=== PATIENT | male | born 1985 | race Two or more races ===

== ENCOUNTER 2025-08-05 06:31 | Inpatient (IN) | payer OTHER ==
[~2025-08-05] VITALS: Ht 167.6 cm; Wt 83.9 kg
--- NOTE | 2025-08-05 06:35 | NUR ---
SE RECIBE PTE ALERTA Y ORIENTADO X3 EN AMBULANCIAS VITALINE CON QUEJA PRINCIPAL DE TRE TENIDO MUCHO DOLOR EN FLANCO DERECHO EL EDWIN DE ADÁN A LAS 11:00 AM. AL MOMENTO DE TRIAGE NO REFIERE DOLOR, SOLO MOLESTIAS. SE OBSERVA CANALIZACION EN BRAZO DESHAUN. SE MIDEN SV Y SE UBICA.
[2025-08-05] MEDS ORDERED: FAMOTIDINE/PF 20 MG/2 ML VIAL IV STA ×2 (07:52→17:51)
[2025-08-05] MEDS ORDERED: 0.9 % SODIUM CHLORIDE 1,000 ML IV STA (07:52)
[2025-08-05] MEDS ORDERED: ONDANSETRON HCL 2 MG/ML VIAL IV STA ×2 (07:53→17:50)
[2025-08-05] MEDS ORDERED: KETOROLAC TROMETHAMINE 30 MG VIAL IV STA ×2 (07:53→17:50)
[2025-08-05 08:16] LABS: BASO % 0.3 % (0.1-1.2); EOS # 0.01 (0.04-0.54); EOS % 0.1 % (0.7-7.0); LYMPH # 1.39 (1.18-3.74); LYMPH % 7.8 % (19.3-53.1); MEAN PLATELET VOLUME 8.70 fl (9.4-12.4); MONO # 1.23 (0.24-0.82); MONO % 6.9 % (4.7-12.5); NEUT # 15.20 (1.56-6.13); NEUT % 84.6 % (34.0-71.1); RED CELL DISTRIBUTION WIDTH 12.4 % (11.6-14.4)
[2025-08-05] MEDS ORDERED: ONDANSETRON HCL 2 MG/ML VIAL ONE (08:24)
[2025-08-05] MEDS ORDERED: KETOROLAC TROMETHAMINE 30 MG VIAL ONE (08:24)
[2025-08-05] MEDS ORDERED: FAMOTIDINE/PF 20 MG/2 ML VIAL ONE (08:24)
[2025-08-05 08:37] LABS: ERYTHROCYTE SEDIMENTATION RATE 11 mm/hr (0-15)
[2025-08-05 08:42] LABS: INR 1.04
--- NOTE | 2025-08-05 08:46 | NUR ---
SE ORIENTA A PTE SOBRE TRATAMIENTO ORDENADO. PTE REFIERE COMPRENDER. SE ADMINSTRA MEDICAMENTOS, RICHARD MUESTRAS Y RN CHERY ABRE VENOPUNCION SIGUIENDO LAS MEDIDAS ASEPTICAS Y SE UBICA EN ESPERA DE RESULTADOS. SE NOTIFICA A CT.
[2025-08-05 09:25] LABS: ALT/SGPT 22.0 U/L (12-78); AST/SGOT 11.0 U/L (15-37); BILIRUBIN TOTAL 0.59 mg/dL (0.3-1.2); BUN CREA RATIO 16.0 (7.0-25.0); CREATININE SERUM 0.73 mg/dL (0.70-1.30); GFR 118.4; GLOBULINA 3.4 G/DL (2.4-3.5); GLUCOSE FASTING 109.0 mg/dL (65-100); OSMOLALITY SERUM 278.0 MOSM/KG (275-295)
[2025-08-05 09:31] LABS: URINE APPEARANCE Clear; URINE BILIRRUBIN Negative (NEGATIVE); URINE BLOOD NHT; URINE COLOR Yellow; URINE GLUCOSE Negative (NEGATIVE); URINE KETONE 15 (NEGATIVE); URINE LEUKOCYTE Negative; URINE NITRATE Negative; URINE PROTEIN Negative (NEGATIVE); URINE UROBILINOGEN 0.2 E.U./dl
[2025-08-05 09:37] LABS: URINE EPITHELIAL CELLS 3.6 uL (0.0-38.8); URINE RBC 7.5 uL (0.0-20.8); URINE WBC 13.4 uL (0.0-23.2)
[2025-08-05 09:50] LABS: URINE BACTERIA 2.2 uL (0.0-1933); URINE CAST 0.00 uL (0.0-1.40)
[2025-08-05] MEDS ORDERED: PIPERACILLIN/TAZOBACTAM SODIUM 3.375 GM in 0.9 % SODIUM CHLORIDE 100 ML IV SCH ×2 (12:00→18:00)
[2025-08-05] MEDS ORDERED: PIPERACILLIN/TAZOBACTAM SODIUM 3.375 GM VIAL IV ONE ×2 (12:01→17:01)
[2025-08-05] MEDS ORDERED: ONDANSETRON HCL 2 MG/ML VIAL IV PRN ×2 (15:45→18:00)
[2025-08-05] MEDS ORDERED: KETOROLAC TROMETHAMINE 30 MG VIAL IV PRN ×2 (15:45→18:00)
[2025-08-05] MEDS ORDERED: 0.9 % SODIUM CHLORIDE 1,000 ML IV SCH ×2 (15:45→18:00)
[2025-08-05] MEDS ORDERED: SUGAMMADEX SODIUM 200 MG/2 ML VIAL IV ONE (16:10)
[2025-08-05] MEDS ORDERED: BUPIVACAINE HCL/MPF 0.5% 30ML VIAL ONE (16:34)
[2025-08-05] MEDS ORDERED: ISOPROPYL ALCOHOL 30 ML OUNCE TOP ONE (16:34)
[2025-08-05 16:48] VITALS: BP 118/76; O2SAT 98
[2025-08-06 00:44] VITALS: BP 111/76; O2SAT 100
[2025-08-06 06:22] LABS: BASO % 0.2 % (0.1-1.2); EOS # 0.05 (0.04-0.54); EOS % 0.4 % (0.7-7.0); LYMPH # 1.69 (1.18-3.74); LYMPH % 13.1 % (19.3-53.1); MEAN PLATELET VOLUME 9.30 fl (9.4-12.4); MONO # 0.66 (0.24-0.82); MONO % 5.1 % (4.7-12.5); NEUT # 10.43 (1.56-6.13); NEUT % 80.9 % (34.0-71.1); RED CELL DISTRIBUTION WIDTH 12.4 % (11.6-14.4)
[2025-08-06 07:13] LABS: BUN CREA RATIO 13.0 (7.0-25.0); CREATININE SERUM 0.93 mg/dL (0.70-1.30); GFR 89.54; GLUCOSE FASTING 88.0 mg/dL (65-100); OSMOLALITY SERUM 284.0 MOSM/KG (275-295)
[2025-08-06 07:30] VITALS: BP 98/58; O2SAT 96
[2025-08-06 16:18] VITALS: BP 105/65; O2SAT 98
[2025-08-07 01:03] VITALS: BP 112/69; O2SAT 98
[2025-08-07 08:00] VITALS: BP 113/70; O2SAT 95
== END 2025-08-07 15:20 | disposition home or self-care (01) | DRG 331 ==
LOC: ER 06:31 → SURH 12:40
PROVIDERS: Physician Assistant Medical; Surgery; ADMIT Internal Medicine; ATTEND Internal Medicine
PROC: 0DTJ4ZZ Resection of Appendix, Percutaneous Endoscopic Approach (ICD-10-PCS; 2025-08-05)
PROC: 0W9G4ZZ Drainage of Peritoneal Cavity, Percutaneous Endoscopic Approach (ICD-10-PCS; 2025-08-05)
PROC: 0WQF4ZZ Repair Abdominal Wall, Percutaneous Endoscopic Approach (ICD-10-PCS; 2025-08-05)
PROC: BW21YZZ Computerized Tomography (CT Scan) of Abdomen and Pelvis using Other Contrast (ICD-10-PCS; 2025-08-05)
PROC: 0DBH4ZZ Excision of Cecum, Percutaneous Endoscopic Approach (ICD-10-PCS; principal; 2025-08-05 14:15)
DX: K35.80 Unspecified acute appendicitis (principal); D72.829 Elevated white blood cell count, unspecified